=== PATIENT | female | born 1955 | race African-American/Black ===

== ENCOUNTER 2018-01-29 11:45 | Emergency (ER) | payer SELFPAY ==
[2018-01-29 12:14] LABS: Mean Corpuscular HGB CONC 31.2 g/dL (32.0-36.0); Mean Corpuscular Hemoglobin 27.7 pg (27.0-31.0); Mean Corpuscular Volume 88.9 fl (81.0-99.0); Mean Platelet Volume 7.9 fL (7.4-10.4); Platelet Count 192 thou/uL (130-400); RBC Distribution Width 14.1 % (11.5-14.5); Red Blood Cell (RBC) Count 4.68 mill/uL (4.20-5.40)
[2018-01-29 12:28] LABS: CKMB 3.9 ng/mL (0-6.6); Troponin I Less than 0.010 ng/mL (< 0.028)
--- NOTE | 2018-01-29 12:28 | RAD ---
PORTABLE AP CHEST RADIOGRAPH Date: 01-29-18 History: Chest pain. Comparison: None available. FINDINGS: Cardiac silhouette and pulmonary vasculature are within normal limits. There are linear densities at each lung base which may relate to either atelectasis or mild scarring. The lungs are otherwise clear . Minimal vascular calcification seen in the thoracic aorta. There are calcifications seen superior t o the right humeral head which may be related to calcific tendinitis. IMPRESSION: 1. No acute cardiopulmonary process. 2. Minimal bibasilar atelectasis versus scarring. POS: [facility]
[2018-01-29 12:29] LABS: Anisocytosis SLIGHT = 6-15 cells (100X) (0-5/hpf); Band 2 % (5-11); Eosinophils 2 % (0-10); Lymphocytes 64 % (21-51); MDiff Complete? YES; Manual Diff?? YES; Monocytes 6 % (0-10); Neutrophil 28 % (42-75); PLT Morphology Comment Appears Adequate
[2018-01-29 12:39] LABS: Anion Gap 15 mmol/L (10-20); BUN (Urea Nitrogen) 18 mg/dL (9.8-20.1); Calc. Creatinine Clearance 0 mL/min (70-130); Calcium 9.4 mg/dL (7.8-10.44); Carbon Dioxide 21 mmol/L (23-31); Chloride 109 mmol/L (98-107); Estimated GFR-MDRD 64; Glucose 90 mg/dL (80-115); Potassium 3.9 mmol/L (3.5-5.1); Sodium 141 mmol/L (136-145)
== END 2018-01-29 13:15 | disposition short-term general hospital (02) ==
LOC: MADERS 11:45
DX: R07.2 Precordial pain (principal)
CPT/HCPCS: 71045; 80048; 82553; 83880; 84484; 85025; 93005